=== PATIENT | male | born 1930 | race Caucasian/White ===

== ENCOUNTER 2020-03-09 16:12 | Observation (INO) ==
[2020-03-09 16:48] LABS: Basophils # 0.1 K/mcL (0.0-0.2); Basophils % 0.6 %; Eosinophils # 0.3 K/mcL (0.0-0.6); Eosinophils % 3.5 %; Hematocrit 46.1 % (37.5-50.1); Hemoglobin 14.7 g/dL (12.9-16.9); Immature Granulocytes % 0.2 % (0-4); Lymphocytes % 37.6 %; Mean Corpuscular HGB Conc 31.9 g/dL (31.6-35.5); Mean Corpuscular Volume 84.7 fL (83.0-100.0); Mean Platelet Volume 10.2 fL (9.4-12.4); Monocytes # 0.7 K/mcL (0.0-1.3); Neutrophils # 3.9 K/mcL (1.6-8.9); Platelet Count 201 K/mcL (140-400); Red Blood Count 5.44 M/mcL (4.19-5.50); Red Cell Distribution Width 13.2 % (11.5-14.5); Segmented Neutrophils % 49.1 %
[2020-03-09 17:05] LABS: Alanine Aminotransferase 14 Units/L (7-52); Albumin 4.4 g/dL (3.5-5.7); Albumin/Globulin Ratio 1.3 (1.1-2.2); Alkaline Phosphatase 69 Units/L (34-104); Aspartate Amino Transferase 21 Units/L (13-39); BUN/Creatinine Ratio 16 (6-26); Bilirubin,Total 0.8 mg/dL (0.3-1.0); Blood Urea Nitrogen 20 mg/dL (8-23); Calcium 10.2 mg/dL (8.6-10.3); Carbon Dioxide 30 mEq/L (23-29); Chloride 102 mEq/L (98-107); Globulin 3.5 g/dL (2.4-3.5); Glucose 98 mg/dL (70-105); Osmolality,Calculated 293 (280-300); Potassium 4.3 mEq/L (3.5-5.1); Sodium 140 mEq/L (136-145); Total Protein 7.9 g/dL (6.4-8.9); Troponin I 0.04 ng/mL (< 0.04); eGFR For African Americans > 60 (> 60); eGFR For Non-African Americans 53 (> 60)
[2020-03-09] MEDS ORDERED: Furosemide 20 MG/2 ML VIAL IVP ONE (17:10)
[2020-03-09 17:20] LABS: Thyroid Stimulating Hormone 4.576 mcIU/mL (0.340-5.600); Triiodothyronine (T3) Free 3.42 pg/mL (2.50-3.90)
[2020-03-09] MEDS ORDERED: Naloxone 0.4 MG/ML INJ IVP PRN (18:19)
[2020-03-09] MEDS ORDERED: Ondansetron 4 MG/2 ML VIAL IVP PRN (18:19)
[2020-03-09] MEDS ORDERED: Acetaminophen 325 MG TABLET PO PRN (18:19)
[2020-03-09] MEDS ORDERED: Perflutren Lipid Microsphere 1.3 ML in 0.9 % Sodium Chloride 8.7 ML IVP PRN (18:26)
[2020-03-09] MEDS ORDERED: Isovue-370 500 ML BOTTLE IVP ONE (19:55)
[2020-03-09] MEDS: *HR* Heparin 5,000 UNIT/ML VIAL SQ SCH (20:12)
[2020-03-10 03:40] LABS: Basophils % 0.7 %; Eosinophils % 2.1 %; Hematocrit 50.5 % (37.5-50.1); Immature Granulocytes % 0.4 % (0-4); Lymphocytes % 34.1 %; Mean Corpuscular HGB Conc 32.3 g/dL (31.6-35.5); Mean Corpuscular Hemoglobin 27.2 pg (28.0-33.3); Mean Corpuscular Volume 84.3 fL (83.0-100.0); Mean Platelet Volume 10.2 fL (9.4-12.4); Monocytes % 7.9 %; Platelet Count 223 K/mcL (140-400); Red Blood Count 5.99 M/mcL (4.19-5.50); Segmented Neutrophils % 54.8 %; White Blood Count 7.7 K/mcL (4.3-11.1)
[2020-03-10 03:41] LABS: Basophils # 0.1 K/mcL (0.0-0.2); Eosinophils # 0.2 K/mcL (0.0-0.6); Lymphocytes # 2.6 K/mcL (0.6-4.6); Monocytes # 0.6 K/mcL (0.0-1.3); Neutrophils # 4.2 K/mcL (1.6-8.9)
[2020-03-10 03:44] LABS: Hemoglobin 16.3 g/dL (12.9-16.9)
[2020-03-10 04:02] LABS: Alanine Aminotransferase 16 Units/L (7-52); Albumin 4.5 g/dL (3.5-5.7); Albumin/Globulin Ratio 1.2 (1.1-2.2); Alkaline Phosphatase 80 Units/L (34-104); Aspartate Amino Transferase 23 Units/L (13-39); BUN/Creatinine Ratio 15 (6-26); Blood Urea Nitrogen 19 mg/dL (8-23); Calcium 10.7 mg/dL (8.6-10.3); Carbon Dioxide 32 mEq/L (23-29); Chloride 99 mEq/L (98-107); Chol/HDL Ratio 6.3 (0-4.9); Cholesterol 209 mg/dL (< 200); Globulin 3.7 g/dL (2.4-3.5); Glucose 101 mg/dL (70-105); HDL Cholesterol 33 mg/dL (40-59); LDL Cholesterol,Calculated 158 mg/dL (< 100); Osmolality,Calculated 290 (280-300); Potassium 4.7 mEq/L (3.5-5.1); Sodium 139 mEq/L (136-145); Total Protein 8.2 g/dL (6.4-8.9); Triglycerides 91 mg/dL (< 150); eGFR For African Americans > 60 (> 60); eGFR For Non-African Americans 54 (> 60)
[2020-03-10] MEDS: *HR* Heparin 5,000 UNIT/ML VIAL SQ SCH (05:15)
[2020-03-10] MEDS: Furosemide 20 MG TABLET PO SCH (10:06)
[2020-03-10] MEDS ORDERED: *HR* Heparin 5,000 UNIT/ML VIAL IVP PRN ×2 (10:38)
[2020-03-10] MEDS ORDERED: *HR* Heparin 5,000 UNIT/ML VIAL IVP ONE (10:38)
[2020-03-10 11:01] LABS: Hematocrit 50.2 % (37.5-50.1); Hemoglobin 16.3 g/dL (12.9-16.9); Mean Corpuscular HGB Conc 32.5 g/dL (31.6-35.5); Mean Corpuscular Hemoglobin 28.1 pg (28.0-33.3); Mean Corpuscular Volume 86.6 fL (83.0-100.0); Platelet Count 211 K/mcL (140-400); Red Cell Distribution Width 13.1 % (11.5-14.5); White Blood Count 9.2 K/mcL (4.3-11.1)
[2020-03-10 11:08] LABS: Heparin anti-factor XA UFH 0.04 IU/mL (0.30-0.70); INR 1.1; Prothrombin Time 12.9 Seconds (9.4-12.1)
[2020-03-10] MEDS: Heparin 25,000UNIT/250ML 1/2NS 25,000 UNIT/250 ML IV.SOLN IVC SCH ×2 (11:35→14:13)
[2020-03-10] MEDS ORDERED: Heparin 25,000UNIT/250ML 1/2NS 25,000 UNIT/250 ML IV.SOLN IVC SCH ×2 (13:25→21:00)
[2020-03-10] MEDS: Apixaban 5 MG TABLET PO SCH (21:10)
[2020-03-11] MEDS: Furosemide 20 MG TABLET PO SCH (09:00)
[2020-03-11] MEDS: Aspirin Enteric Coated 81 MG Tablet PO SCH (09:00)
[2020-03-11] MEDS: Apixaban 5 MG TABLET PO SCH ×2 (09:00→19:59)
[2020-03-11] MEDS ORDERED: Furosemide 20 MG/2 ML VIAL IVP ONE (14:44)
[2020-03-12 07:26] LABS: Hematocrit 46.6 % (37.5-50.1); Hemoglobin 14.8 g/dL (12.9-16.9); Mean Corpuscular HGB Conc 31.8 g/dL (31.6-35.5); Mean Corpuscular Hemoglobin 27.1 pg (28.0-33.3); Mean Corpuscular Volume 85.3 fL (83.0-100.0); Mean Platelet Volume 10.7 fL (9.4-12.4); Platelet Count 215 K/mcL (140-400); Red Blood Count 5.46 M/mcL (4.19-5.50); Red Cell Distribution Width 13.3 % (11.5-14.5); White Blood Count 9.2 K/mcL (4.3-11.1)
[2020-03-12 07:59] LABS: Calcium 10.1 mg/dL (8.6-10.3); Magnesium 2.1 mg/dL (1.6-2.6); Potassium 3.8 mEq/L (3.5-5.1)
[2020-03-12] MEDS: Apixaban 5 MG TABLET PO SCH (10:17)
[2020-03-12] MEDS: Furosemide 20 MG TABLET PO SCH (10:17)
[2020-03-12] MEDS: Aspirin Enteric Coated 81 MG Tablet PO SCH (10:17)
[2020-03-12 14:04] VITALS: BP 119/69
== END 2020-03-12 15:56 | disposition home or self-care (01) ==
LOC: 2ANU 16:12 → EMEROOARM 16:12 → SUATTDRO 19:01 → 2ANU 19:22
PROVIDERS: ADMIT Internal Medicine; ATTEND Internal Medicine